=== PATIENT | male | born 1985 | race Asian ===

== ENCOUNTER 2017-05-11 00:49 | Emergency (ER) | payer BC ==
[~2017-05-11] VITALS: Ht 170.2 cm; Wt 80.3 kg
[2017-05-11 00:57] VITALS: TEMP 36.8; Ht 170.2 cm; Wt 80.3 kg
[2017-05-11] MEDS ORDERED: SODIUM CHLORIDE 0.9% 1000ML 1,000 ML IV STA (01:05)
[2017-05-11] MEDS ORDERED: KETOROLAC TROMETHAMINE 30 MG/ML VIAL IV STA (01:05)
--- NOTE | 2017-05-11 01:13 | EMERGENCY ROOM VISIT NOTE ---
History Report prepared by Moses: Christine Aleman Under the Supervision of: Dr. Zach Watkins M.D. First contact with patient: 01:03 Chief Complaint: KIDNEY STONE Stated Complaint: KIDNEY STONE/UNABLE TO VOID History of Present Illness The patient is a 31 year old male who presents to the Emergency Room with complaints of a kidney stone. The patient reports that he was told he had a kidney stone 2 weeks ago and was given medication, but that he is having pain again. The patient states that the medication did help the pain for a week but did not get rid of the kidney stone. He rates the pain at a 5/10. The patient states that he will urinate but then immediately feel like he needs to urinate again. He denies seeing blood in his urine. The patient reports having a cough but denies diarrhea and constipation. Source of History: patient Onset: today Position: other (kidney) Symptom Intensity: rated at a 5/10 Quality: other (kidney stone ) Associated Symptoms: + cough, No diarrhea Review of Systems See HPI for pertinent positives and negatives. A total of ten systems were reviewed and were otherwise negative. Past Medical & Surgical Medical Problems: (1) Kidney disease Family History Diabetes mellitus FHx: kidney disease Heart disease Hypertension Social History Smoking Status: Current Every Day Smoker Occupation Status: employed Current/Historical Medications Scheduled Fenofibrate (Tricor), 1 TAB PO DAILY Tamsulosin Hcl (Flomax), 1 CAP PO DAILY Scheduled PRN Ibuprofen Tab (Motrin), 800 MG PO Q8H PRN for Pain Ondansetron Hcl (Zofran), 4 MG PO Q8H PRN for Nausea Allergies Coded Allergies: No Known Allergies (Unverified , 05/11/17) Physical Exam Vital Signs Date Time Temp Pulse Resp B/P (MAP) Pulse Ox O2 Delivery O2 Flow Rate FiO2 05/11/17 04:27 60 16 125/83 97 05/11/17 02:41 85 18 128/83 97 Room Air 05/11/17 00:57 36.8 92 18 141/89 96 Room Air Physical Exam GENERAL: Awake, alert, well-appearing, in no distress HENT: Normocephalic, atraumatic. Oropharynx unremarkable. EYES: Normal conjunctiva. Sclera non-icteric. NECK: Supple. No nuchal rigidity. FROM. No JVD. RESPIRATORY: Clear to auscultation. CARDIAC: Regular rate, normal rhythm. Extremities warm and well perfused. Pulses equal. ABDOMEN: Soft, non-distended. Mild tenderness in right flank and suprapubic area. No rebound or guarding. No masses. RECTAL: Deferred. MUSCULOSKELETAL: Chest examination reveals no tenderness. The back is symmetrical on inspection without obvious abnormality. There is no CVA tenderness to palpation. No joint edema. LOWER EXTREMITIES: Calves are equal size bilaterally and non-tender. No edema. No discoloration. NEURO: Normal sensorium. No sensory or motor deficits noted. SKIN: No rash or jaundice noted. Medical Decision & Procedures ER Provider Diagnostic Interpretation: Ultrasound: Mild to moderate hydronephrosis on the right. Laboratory Results 05/11/17 01:30 Red Blood Count 4.76, Mean Corpuscular Volume 87.2, Mean Corpuscular Hemoglobin 31.1, Mean Corpuscular Hemoglobin Concent 35.7, Mean Platelet Volume 9.7, Neutrophils (%) (Auto) 60.8, Lymphocytes (%) (Auto) 30.3, Monocytes (%) (Auto) 6.9, Eosinophils (%) (Auto) 1.7, Basophils (%) (Auto) 0.1, Neutrophils # (Auto) 5.65, Lymphocytes # (Auto) 2.82, Monocytes # (Auto) 0.64, Eosinophils # (Auto) 0.16, Basophils # (Auto) 0.01 05/11/17 01:30 Test 05/11/17 01:30 White Blood Count 9.30 K/uL (4.8-10.8) Red Blood Count 4.76 M/uL (4.7-6.1) Hemoglobin 14.8 g/dL (14.0-18.0) Hematocrit 41.5 % (42-52) Mean Corpuscular Volume 87.2 fL (80-100) Mean Corpuscular Hemoglobin 31.1 pg (25-34) Mean Corpuscular Hemoglobin Concent 35.7 g/dl (32-36) Platelet Count 309 K/uL (130-400) Mean Platelet Volume 9.7 fL (7.4-10.4) Neutrophils (%) (Auto) 60.8 % Lymphocytes (%) (Auto) 30.3 % Monocytes (%) (Auto) 6.9 % Eosinophils (%) (Auto) 1.7 % Basophils (%) (Auto) 0.1 % Neutrophils # (Auto) 5.65 K/uL (1.4-6.5) Lymphocytes # (Auto) 2.82 K/uL (1.2-3.4) Monocytes # (Auto) 0.64 K/uL (0.11-0.59) Eosinophils # (Auto) 0.16 K/uL (0-0.5) Basophils # (Auto) 0.01 K/uL (0-0.2) RDW Standard Deviation 39.3 fL (36.4-46.3) RDW Coefficient of Variation 12.2 % (11.5-14.5) Immature Granulocyte % (Auto) 0.2 % Immature Granulocyte # (Auto) 0.02 K/uL (0.00-0.02) Urine Color YELLOW Urine Appearance CLEAR (CLEAR) Urine pH 7.5 (4.5-7.5) Urine Specific [place] 1.018 (1.000-1.030) Urine Protein NEG (NEG) Urine Glucose (UA) NEG (NEG) Urine Ketones NEG (NEG) Urine Occult Blood NEG (NEG) Urine Nitrite NEG (NEG) Urine Bilirubin NEG (NEG) Urine Urobilinogen NEG (NEG) Urine Leukocyte Esterase NEG (NEG) Anion Gap 8.0 mmol/L (3-11) Est Creatinine Clear Calc Drug Dose 110.7 ml/min Estimated GFR () 117.4 Estimated GFR (Non- 101.3 BUN/Creatinine Ratio 22.4 (10-20) Calcium Level 9.0 mg/dl (8.5-10.1) Laboratory results reviewed by me Medications Administered Medications (Trade) Dose Ordered Sig/Priti Route Start Time Stop Time Status Last Admin Dose Admin Sodium Chloride 1,000 ml @ 999 mls/hr Q1H1M STAT IV 05/11/17 01:05 05/11/17 02:05 DC 05/11/17 01:43 999 MLS/HR Ketorolac Tromethamine (Toradol Inj) 30 mg NOW STAT IV 05/11/17 01:05 05/11/17 01:13 DC 05/11/17 01:43 30 MG Tamsulosin HCl (Flomax Cap) 0.4 mg NOW ONCE PO 05/11/17 04:00 05/11/17 04:01 DC 05/11/17 04:27 0.4 MG ED Course 0100: The patient was evaluated in room B9. A complete history and physical exam was performed. 0105: Ordered Toradol Inj 30 mg IV, Sodium Chloride 1,000 ml @ 999 mls/hr IV. Medical Decision I reviewed the patient's past medical history, medications, and the nursing notes as described above. Differentials include: UTI, pyelonephritis, renal stone, infected renal stone, and STD. Patient is a 31-year-old gentleman with a past medical history of a recent kidney stone diagnosis several weeks ago presents emergency Department with return of right flank pain and now with urinary urgency and dysuria history of present illness. Exam the patient has mild tenderness in the right flank and suprapubic area. Is afebrile with stable vital signs in no acute distress. That ultrasound shows mild to moderate hydro-on the right. The setting of the patient's urinary symptoms concern for possibly infected stone. CT abdomen and pelvis ordered. Stat read report of CT reads a 4.5 millimeter stone at the UVJ causing mild- moderate hydronephrosis. Labs otherwise unremarkable WBC and creatinine within normal limits. UA negative for infection. Symptoms of urgency most likely related to bladder spasm in the setting of this obstructing stone. We'll treat with a another course of tamsulosin and ibuprofen. Findings and plan for urology follow-up d/w patient. Patient agreeable and d/c'd per discharge instructions. Medication Reconcilliation Current Medication List: was personally reviewed by me Blood Pressure Screening Patient's blood pressure: Elevated blood pressure Blood pressure disposition: Elevated BP felt to be situational Impression Primary Impression: Ureterolithiasis Scribe Attestation The scribe's documentation has been prepared under my direction and personally reviewed by me in its entirety. I confirm that the note above accurately reflects all work, treatment, procedures, and medical decision making performed by me. Departure Information Dispostion Home / Self-Care Prescriptions Ondansetron Hcl (ZOFRAN) 4 Mg Tab 4 MG PO Q8H Y for Nausea, #10 TAB Prov: Zach Watkins M.D. 05/11/17 Ibuprofen Tab (MOTRIN) 800 Mg Tab 800 MG PO Q8H Y for Pain for 10 Days, #30 TAB Prov: Zach Watkins M.D. 05/11/17 Tamsulosin Hcl (FLOMAX) 0.4 Mg Cap 1 CAP PO DAILY for 7 Days, #7 CAP Prov: Zach Watkins M.D. 05/11/17 Referrals No Doctor, Assigned (PCP) Arely Cabral MD Patient Instructions Kidney Stones, Kidney Stones - [facility], [facility] Additional Instructions Please follow up with urology in the next 1-3 days for a follow up appointment. Your symptoms are likely due to urinary and kidney stone was visualized on her CT scan causing some obstruction. Otherwise, your exam, lab results, and CT scan did not show signs of an emergent condition at this time. Take tamsulosin as directed to help with stone passage. Zofran as needed for nausea. Ibuprofen for pain as needed. Return to the emergency department for worsening symptoms as described in the accompanying instructions.
[2017-05-11] MEDS ORDERED: FENO48TA9 PO (01:29)
[2017-05-11 01:46] LABS: URINE APPEARANCE CLEAR (CLEAR); URINE BILIRUBIN NEG (NEG); URINE COLOR YELLOW; URINE NITRITE NEG (NEG); URINE PH 7.5 (4.5-7.5); URINE SPECIFIC GRAVITY 1.018 (1.000-1.030); UROBILINOGEN NEG (NEG); ZZUR CULT IF INDIC CLEAN CATCH NO
[2017-05-11 01:48] LABS: MANUAL MICROSCOPIC REQUIRED? NO; REVIEW REQ? NO
[2017-05-11 01:49] LABS: BASO % 0.1 %; BASO ABS # 0.01 K/uL (0-0.2); COMPLETE YES; EOS % 1.7 %; HEMATOCRIT 41.5 % (42-52); IG% 0.2 %; LYMPH % 30.3 %; LYMPH ABS # 2.82 K/uL (1.2-3.4); MEAN CELL VOLUME 87.2 fL (80-100); MEAN CORPUSCULAR HEMOGLOBIN 31.1 pg (25-34); MEAN CORPUSCULAR HGB CONC 35.7 g/dl (32-36); MEAN PLATELET VOLUME 9.7 fL (7.4-10.4); MONO % 6.9 %; NEUT % 60.8 %; PLATELET COUNT 309 K/uL (130-400); RED BLOOD COUNT 4.76 M/uL (4.7-6.1)
[2017-05-11] MEDS ORDERED: OPTIRAY 320 IV PRN (02:00)
[2017-05-11 02:05] LABS: BUN/CREATININE RATIO 22.4 (10-20); POTASSIUM 3.5 mmol/L (3.5-5.1)
[2017-05-11] MEDS ORDERED: ONDA4TAB46 PO (03:50)
[2017-05-11] MEDS ORDERED: IBUP-1451 PO (03:50)
[2017-05-11] MEDS ORDERED: TAMS0.4C38 PO (03:50)
[2017-05-11] MEDS ORDERED: TAMSULOSIN HCL 0.4 MG CAP PO ONE (04:00)
[2017-05-11 04:27] VITALS: BP 125/83; PULSE 60; O2SAT 97
--- NOTE | 2017-05-11 08:32 | DIAGNOSTIC IMAGING REPORT ---
ABD/PELVIS IV CONTRAST ONLY HISTORY: 31 years-old Male flank pain / dysuria acute right-sided flank pain with dysuria. Initial exam. COMPARISON: None available. TECHNIQUE: Multiple axial CT images of the abdomen and pelvis were obtained following each venous administration of 93 mL Optiray 320. A dose lowering technique was used consistent with the principals of AJ. FINDINGS: There is mild dependent bibasilar atelectasis. No pneumoperitoneum identified. Imaged inferior cardiac chambers are unremarkable. Nonspecific calcifications of the right hepatic lobe posterior to the right portal vein measuring up to 5 mm are noted. The spleen, pancreas and adrenal glands are within normal limits. Gallbladder is contracted. Left kidney and ureter are unremarkable. Coarse central prostatic calcifications are noted. Urinary bladder is partially collapsed. There is delayed nephrogram on the right with minimal perinephric inflammatory stranding and mild right-sided hydroureteronephrosis and urothelial enhancement secondary to a 6 x 5 x 7 mm calculus of the distal right ureter just proximal to the ureterovesicular junction. The abdominal aorta is normal in course and caliber. No bulky retroperitoneal adenopathy. There is no focal bowel wall thickening or bowel obstruction. Normal appendix. Soft tissues are unremarkable. Bones appear intact. IMPRESSION: 1. Mild right-sided hydroureteronephrosis is noted with delayed nephrogram secondary to a 6 x 5 x 7 mm calculus of the distal right ureter located just proximal to the ureterovesicular junction. Mild associated urothelial enhancement of the right ureter is likely reactive with superimposed ascending ureteritis also in the differential. 2. Normal appendix. The above report was generated using voice recognition software. It may contain grammatical, syntax or spelling errors. Electronically signed by: Hardeep Lao M.D. 05/11/2017 8:30 AM Dictated Date/Time: 05/11/2017 8:24 AM
== END 2017-05-11 04:33 | disposition home or self-care (01) ==
LOC: C.EDB 00:51
DX: N20.1 Calculus of ureter (principal); F17.200 Nicotine dependence, unspecified, uncomplicated; Z83.3 Family history of diabetes mellitus; Z82.49 Family history of ischemic heart disease and other diseases of the circulatory system